=== PATIENT | female | born 1950 | race Caucasian/White ===

== ENCOUNTER → 2024-03-27 14:07 | Outpatient (REF) | payer MEDICARE, OTHER, SELFPAY | LOC: HWRAD 14:07 | PROVIDERS: ATTENDING PHYSICIAN Physician Assistant Medical | DX: M54.41 Lumbago with sciatica, right side (principal); M54.42 Lumbago with sciatica, left side | CPT/HCPCS: 72110 ==

== ENCOUNTER → 2024-04-20 19:36 | Outpatient (REF) | payer MEDICARE, OTHER, SELFPAY | LOC: MRI 19:36 | PROVIDERS: ATTENDING PHYSICIAN Neurological Surgery; FAMILY PHYSICIAN Physician Assistant Medical | DX: M54.16 Radiculopathy, lumbar region (principal) | CPT/HCPCS: 72148 ==

== ENCOUNTER → 2024-06-09 09:27 | Outpatient (REF) | payer MEDICARE, OTHER, SELFPAY | LOC: HWRAD 09:27 | PROVIDERS: ATTENDING PHYSICIAN Anesthesiology; FAMILY PHYSICIAN Physician Assistant Medical | DX: M25.552 Pain in left hip (principal) | CPT/HCPCS: 73502 ==

== ENCOUNTER → 2024-08-20 14:50 | Outpatient (REF) | payer MEDICARE, OTHER, SELFPAY | LOC: WDC 14:50 | PROVIDERS: ATTENDING PHYSICIAN Physician Assistant Medical | DX: Z12.31 Encounter for screening mammogram for malignant neoplasm of breast (principal) | CPT/HCPCS: 77063; 77067 ==

== ENCOUNTER → 2025-08-23 13:21 | Outpatient (REF) | payer MEDICARE, OTHER, SELFPAY | LOC: WDC 13:21 | PROVIDERS: ATTENDING PHYSICIAN Physician Assistant Medical | DX: Z12.31 Encounter for screening mammogram for malignant neoplasm of breast (principal) | CPT/HCPCS: 77063; 77067 ==